=== PATIENT | female | born 1940 | race Hispanic/Latino ===

== ENCOUNTER → 2023-01-17 | Outpatient (CLI) | payer MEDICARE | END | disposition home or self-care (01) | LOC: SHCH 12:45 | PROVIDERS: ATTEND Internal Medicine Cardiovascular Disease | DX: I08.1 Rheumatic disorders of both mitral and tricuspid valves (principal); Q21.10 Atrial septal defect, unspecified; I10 Essential (primary) hypertension | CPT/HCPCS: 93306 ==